=== PATIENT | male | born 1955 | race Caucasian/White ===

== ENCOUNTER → 2020-07-01 18:57 | Outpatient (BNVA) | payer OTHER, SELFPAY | PROVIDERS: Visit Provider Nurse Practitioner | DX: Z20.828 Contact with and (suspected) exposure to other viral communicable diseases (principal) | CPT/HCPCS: 87635 ==

== ENCOUNTER → 2023-01-23 13:12 | Outpatient (BNVA) | payer OTHER, SELFPAY | PROVIDERS: PCP Family Medicine; Visit Provider Family Medicine | DX: M19.90 Unspecified osteoarthritis, unspecified site (principal); E55.9 Vitamin D deficiency, unspecified | CPT/HCPCS: 80053; 82306 ==

== ENCOUNTER → 2024-05-28 14:14 | Outpatient (BNVA) | payer OTHER, SELFPAY | PROVIDERS: PCP Family Medicine; Visit Provider Family Medicine | DX: Z00.00 Encounter for general adult medical examination without abnormal findings (principal); R35.0 Frequency of micturition; N40.0 Benign prostatic hyperplasia without lower urinary tract symptoms | CPT/HCPCS: 80053; 80061 ==

== ENCOUNTER 2024-10-24 21:24 | Emergency (ER) | payer OTHER, SELFPAY ==
[2024-10-24 21:33] VITALS: BP 153/76; PULSE 82; RESP 16; TEMP 36.8; O2SAT 95; BMI 26.9
--- NOTE | 2024-10-24 23:04 | ED_ITS ---
HPI - Recheck/Abnormal Lab/Rx 2 General: Chief Complaint: Recheck/Abnormal Lab/Rx Stated Complaint: high BP head splitting n/v post op yesterday Time Seen by Provider: 10/24/24 23:04 History of Present Illness: Patient is a 69-year-old male seen for headache and sinus pressure 2 days status post ENT procedure where he underwent septoplasty and polypectomy at [facility] with Dr. Walker. Family provides most of the history as he is in moderate distress due to pain. They describe that he has had worsening headache and altered mental status since returning home from surgery. He has not taken any antibiotics. He has vomited several times. He has not had any seizure-like activity. They have not noticed fever. Pain does not seem to responding to oral opioids he was prescribed. Related Data Previous Rx's ?Medication ?Instructions ?Recorded amoxicillin 875 mg-potassium 1 tab PO BID 10 days #20 tabs 06/21/24 clavulanate 125 mg tablet tamsulosin 0.4 mg capsule 0.4 mg PO DAILY urinary symp toms. 08/29/24 #90 caps Allergies Allergy/AdvReac Type Severity Reaction Status Date / Time No Known Allergies Allergy Verified 06/21/24 13:43 PFSH ED 2 PFSH: Medical History Hearing loss Social History Smoking and tobacco/nicotine status: unknown if used tobacco/nicotine Physical Exam 2 Const: COMMON NORMALS: patient oriented x3 and alert OTHER: Moderate distress due to pain. HENMT: OTHER: Bilateral nasal splints in place. No active nasal discharge. No obvious postnasal drip, bleed, or CSF leak noted. Eye: COMMON NORMALS: Equal, round and reactive pupils present, EOMs intact bilaterally and no scleral icterus PUPIL: Yes Equal, round and reactive pupils present Resp: COMMON NORMALS: normal respiratory effort and No retractions Cardio: COMMON NORMALS: regular rate, regular rhythm and No murmurs present (Cardio) RATE: regular rate RHYTHM: regular rhythm GI: COMMON NORMALS: Normal to inspection, nondistended, normoactive bowel sounds present, Soft to palpation and non-tender PALPATION: Yes Soft to palpation Neuro: COMMON NORMALS: patient oriented x3 SENSORIUM/ORIENTATION: Yes alert Skin: COMMON NORMALS: no rashes or lesions noted GENERAL SKIN EXAM: no rashes or lesions noted Course 2 Vital Signs: Vital signs: Vital Signs Temperature 98.2 F 10/24/24 21:33 Pulse Rate 75 10/25/24 03:09 Respiratory Rate 16 10/25/24 00:15 Blood Pressure 140/74 10/25/24 03:09 Pulse Oximetry 91 10/25/24 03:09 Oxygen Delivery Me thod Room Air 10/24/24 23:09 MDM - Recheck/Abnormal Lab/Rx Medical Decision Making In summary, patient is a 69-year-old male seen for headache and altered mental status status post polypectomy and septoplasty. CT brain shows extensive air throughout the intracranial cavity concerning for surgical complication. I contacted ENT on-call at [facility] who spoke with on-call neurosurgery and they jointly agreed that patient would be better served at a larger institution. I spoke with on-call ENT at [facility] in [place] who graciously agrees to consult on the case and recommended hospitalist admission. I spoke with Dr. Tidwell who agrees to admit the patient and accept him in transfer. He was started on vancomycin and cefepime here and the headache is much better with IV morphine. Vital signs are stable with no fever. He will be transported by ground in stable and improved condition. Lab Data 10/24/24 23:40 10/24/24 23:[address] 10/24/24 23:19 IMPRESSION: 1. Diffuse droplets of air throughout the subarachnoid space likely iatrogenic related to recent sinus surgery. 2. No intracranial hemorrhage, focal fluid collection or significant mass effect identified. 3. No discrete bony disruption at the interface of the sinuses with the intracranial fossa appreciated. However, tiny cortical disruption may not be visualized. 4. Moderate acute on chronic pansinusitis with blood in the right maxillary sinus. 5. Post-operative change as described. Laboratory Results WBC 7.24 10^3/uL (3.29-11.43) 10/24/24 23:40 RBC 3.87 10^6/uL (3.85-5.65) 10/24/24 23:40 Hgb 12.60 g/dL (11.27-16.99) 10/24/24 23:40 Hct 37.9 % (37-53) 10/24/24 23:40 MCV 97.9 fl (82-101) 10/24/24 23:40 MCH 32.6 pg (27-33) 10/24/24 23:40 MCHC 33.2 g/dL (30-55) 10/24/24 23:40 RDW 13.1 % (12.1-15.1) 10/24/24 23:40 Plt Count 168 10^3/cmm (157-399) 10/24/24 23:40 MPV 9.4 fL (7.4-10.4) 10/24/24 23:40 Neut % (Auto) 83.5 % 10/24/24 23:40 Lymph % (Auto) 7.0 % 10/24/24 23:40 Gregg % (Auto) 9.1 % 10/24/24 23:40 Eos % (Auto) 0.0 % 10/24/24 23:40 Baso % (Auto) 0.0 % 10/24/24 23:40 Neut # (Auto) 6.04 10^3/uL (1.8-7.7) 10/24/24 23:40 Lymph # (Auto) 0.5 10^3/uL (0.8-4.8) L 10/24/24 23:40 Gregg # (Auto) 0.7 10^3/uL (0.2-0.9) 10/24/24 23:40 Eos # (Auto) 0.0 10^3/uL (0.0-0.8) 10/24/24 23:40 Baso # (Auto) 0.0 10^3/uL (0.0-0.1) 10/24/24 23:40 Nucleated RBC % (auto) 0 % 10/24/24 23: Nucleated RBCs # 0.0 /100WBC 10/24/24 23:40 Sodium 134 mmol/L (136-145) L 10/24/24 23:40 Potassium 3.9 mmol/L (3.5-5.1) 10/24/24 23:40 Chloride 100 mmol/L (98-107) 10/24/24 23:40 Carbon Dioxide 23 mmol/L (22-29) 10/24/24 23:40 Anion Gap 14.9 (5-19) 10/24/24 23:40 BUN 19 mg/dL (8-23) 10/24/24 23:40 Creatinine 0.7 mg/dL (0.7-1.2) 10/24/24 23:40 GFR Calculation 112.5 mL/min (90-130) 10/24/24 23:40 Glucose 128 mg/dL (65-115) H 10/24/24 23:40 Calculated Osmolality 282 mOsm/kg (285-295) L 10/24/24 23:40 Calcium 8.3 mg/dL (8.5-10.5) L 10/24/24 23:40 Total Bilirubin 0.7 mg/dL (0.15-1.2) 10/24/24 23:40 AST 11 U/L (0-40) 10/24/24 23:40 ALT 12 U/L (0-41) 10/24/24 23:40 Alkaline Phosphatase 33 U/L (40-130) L 10/24/24 23:40 Total Protein 6.0 g/dL (6.6-8.7) L 10/24/24 23:40 Albumin 3.9 g/dL (3.5-5.2) 10/24/24 23:40 Globulin 2.1 g/dL (1.3-4.6) 10/24/24 23:40 All radiology interpretation(s) finalized by discharge Discharge Plan Discharge Patient Disposition: Xfer Short-Term Hosp Clinical Impression: Pneumocephalus, Status post nasal septoplasty, Headache Condition: Stable Prescriptions: No Action amoxicillin-pot clavulanate 875-125 mg tablet 1 tab PO BID 10 Days Qty: 20 0RF tamsulosin 0.4 mg capsule 0.4 mg PO DAILY Qty: 90 3RF Discharge Orders: Transfer Out of Facility (Order); Ordered 10/25/24 Ordered By: Leonel Miller Referrals: Carlos Paige DO [Primary Care Provider] - Print Language: Maltese Coding Level of Care Code ED Plating Inspector for Missyg Marcie
[2024-10-24 23:09] VITALS: BP 169/85; PULSE 74; RESP 14; O2SAT 92
--- NOTE | 2024-10-24 23:19 | CTR_ITS ---
PROCEDURE INFORMATION: Exam: CT Head Without Contrast Exam date and time: 10/25/2024 12:19 AM Age: 69 years old Clinical indication: Pain; Headache; Other: Recent sinus surgery yesterday; Additional info: [facility] post sinus surgery TECHNIQUE: Imaging protocol: Computed tomography of the head without contrast. Radiation optimization: All CT scans at this facility use at least one of these dose optimization techniques: automated exposure control; mA and/or kV adjustment per patient size (includes targeted exams where dose is matched to clinical indication); or iterative reconstruction. COMPARISON: No relevant prior studies available. RADIATION DOSE METRICS: Total DLP (mGy-cm): 1224.98 FINDINGS: Brain: There are droplets of air diffusely throughout the subarachnoid space presumably iatrogenic related to recent sinus surgery. However, no intracranial bleed, focal fluid collection, acute infarction or significant mass effect is identified. Cerebral ventricles: No ventriculomegaly. Paranasal sinuses: There is diffuse polypoid mucosal thickening and partial opacification of the sinuses. There are air-fluid levels in the sinuses most notably the right maxillary sinus where there is heterogeneous hyperdensity consistent with blood. There are bilateral medial wall antrectomies. Mastoid air cells: Visualized mastoid air cells are well aerated. Bones: Unremarkable. No acute fracture. Soft tissues: Unremarkable. CT/CT head wo con* [id number] IMPRESSION: 1. Diffuse droplets of air throughout the subarachnoid space likely iatrogenic related to recent sinus surgery. 2. No intracranial hemorrhage, focal fluid collection or significant mass effect identified. 3. No discrete bony disruption at the interface of the sinuses with the intracranial fossa appreciated. However, tiny cortical disruption may not be visualized. 4. Moderate acute on chronic pansinusitis with blood in the right maxillary sinus. 5. Post-operative change as described.
[2024-10-25] VITALS (13 sets, daily range): BP systolic 132–158; BP diastolic 69–102; PULSE 72–86; RESP 16; O2SAT 91–97
[2024-10-25 00:05] LABS: Hematocrit 37.9 % (37-53); Lymphocytes # 0.5 10^3/uL (0.8-4.8); Mean Corpuscular HGB Conc 33.2 g/dL (30-55); Mean Corpuscular Hemoglobin 32.6 pg (27-33); Mean Corpuscular Volume 97.9 fl (82-101); Mean Platelet Volume 9.4 fL (7.4-10.4); Monocytes # 0.7 10^3/uL (0.2-0.9); Monocytes % 9.1 %; Neutrophils # 6.04 10^3/uL (1.8-7.7); Neutrophils % 83.5 %; Nucleated Red Blood Cells % 0 %; Platelet Count 168 10^3/cmm (157-399); Red Blood Count 3.87 10^6/uL (3.85-5.65); Red Cell Distribution Width 13.1 % (12.1-15.1); White Blood Count 7.24 10^3/uL (3.29-11.43)
[2024-10-25] MEDS: morphine 4 mg/mL SDV 1 mL 8 MG IVP (00:15)
[2024-10-25] MEDS: ondansetron 2 mg/ML SDV 2 mL 4 MG IVP (00:15)
[2024-10-25] MEDS: sodium chloride 0.9% 1,000 ML 999 ML IV (00:15)
[2024-10-25 00:17] LABS: Alanine Aminotransferase 12 U/L (0-41); Albumin Level 3.9 g/dL (3.5-5.2); Alkaline Phosphatase 33 U/L (40-130); Anion Gap 14.9 (5-19); Aspartate Amino Transferase 11 U/L (0-40); Blood Urea Nitrogen 19 mg/dL (8-23); Calcium 8.3 mg/dL (8.5-10.5); Carbon Dioxide 23 mmol/L (22-29); Chloride 100 mmol/L (98-107); Creatinine Clr Calc Pharmacy 98.7401; Globulin 2.1 g/dL (1.3-4.6); Glomerular Filtration Rate 112.5 mL/min (90-130); Glucose 128 mg/dL (65-115); Osmolality Calculated 282 mOsm/kg (285-295); Potassium 3.9 mmol/L (3.5-5.1); Sodium 134 mmol/L (136-145); Total Bilirubin 0.7 mg/dL (0.15-1.2)
--- NOTE | 2024-10-25 01:23 | PC.NURSE ---
Assumed care from Amparo DIETZ.
[2024-10-25] MEDS: cefepime 1,000 mg SDV 2000 MG IVP (02:37)
[2024-10-25] MEDS: vancomycin 1,500 MG/300 ML PIGGYBACK 200 MG IV (02:38)
[2024-10-25] MEDS: morphine 4 mg/mL SDV 1 mL IVP ×2 (02:38→06:37)
--- NOTE | 2024-10-25 05:10 | PC.NURSE ---
Report called to Isabel Griffin LPN at [facility]. All questions and concerns were addressed at time of report.
--- NOTE | 2024-10-25 05:20 | PC.NURSE ---
wanted it to be noted in the chart patient's home meds: -Flomax 0.4mg -Amlodipine 5mg -Prednisone 20mg -Azelastine nasal spray -Fluticasone 50mcg -Oxymetazoline
== END 2024-10-25 09:38 | disposition short-term general hospital (02) ==
PROVIDERS: Emergency Provider Student in an Organized Health Care Education/Training Program; PCP Family Medicine
DX: G93.89 Other specified disorders of brain (principal); Z98.890 Other specified postprocedural states; R51.9 Headache, unspecified
CPT/HCPCS: 36415; 70450; 80053; 85025; 96365; 96366; 96375; 96376; 99285; J0692; J2270; J2405; J3370; J7030

== ENCOUNTER 2024-11-07 07:44 | Outpatient (CLI) | payer OTHER, SELFPAY ==
[2024-11-07 09:08] LABS: Basophils % 0.6 %; Eosinophils # 0.1 10^3/uL (0.0-0.8); Eosinophils % 2.4 %; Hematocrit 38.8 % (37-53); Lymphocytes # 1.1 10^3/uL (0.8-4.8); Lymphocytes % 23.1 %; Mean Corpuscular HGB Conc 32.2 g/dL (30-55); Mean Corpuscular Hemoglobin 31.2 pg (27-33); Mean Corpuscular Volume 96.8 fl (82-101); Mean Platelet Volume 9.1 fL (7.4-10.4); Monocytes # 0.4 10^3/uL (0.2-0.9); Monocytes % 7.8 %; Neutrophils # 3.23 10^3/uL (1.8-7.7); Neutrophils % 65.9 %; Nucleated Red Blood Cells % 0 %; Platelet Count 303 10^3/cmm (157-399); Red Blood Count 4.01 10^6/uL (3.85-5.65); Red Cell Distribution Width 12.8 % (12.1-15.1)
[2024-11-07 09:26] LABS: Alanine Aminotransferase 20 U/L (0-41); Albumin Level 3.7 g/dL (3.5-5.2); Alkaline Phosphatase 60 U/L (40-130); Aspartate Amino Transferase 14 U/L (0-40); Blood Urea Nitrogen 14 mg/dL (8-23); Calcium 9.1 mg/dL (8.5-10.5); Carbon Dioxide 23 mmol/L (22-29); Chloride 107 mmol/L (98-107); Globulin 2.7 g/dL (1.3-4.6); Glomerular Filtration Rate 74.5 mL/min (90-130); Glucose 104 mg/dL (65-115); Osmolality Calculated 289 mOsm/kg (285-295); Sodium 139 mmol/L (136-145); Total Bilirubin 0.3 mg/dL (0.15-1.2); Total Protein 6.4 g/dL (6.6-8.7)
[2024-11-07 09:27] LABS: Anion Gap 13.3 (5-19); Potassium 4.3 mmol/L (3.5-5.1)
== END 2024-11-07 07:45 | disposition home or self-care (01) ==
PROVIDERS: PCP Family Medicine
DX: G96.01 Cranial cerebrospinal fluid leak, spontaneous (principal); E87.20 Acidosis, unspecified
CPT/HCPCS: 36415; 80053; 85025

== ENCOUNTER → 2024-11-18 11:45 | Outpatient (BNVA) | payer OTHER, SELFPAY | PROVIDERS: PCP Family Medicine; Visit Provider Family Medicine | DX: E87.20 Acidosis, unspecified (principal) | CPT/HCPCS: 80048 ==

== ENCOUNTER → 2024-12-01 17:34 | Outpatient (BNVA) | payer OTHER, SELFPAY | PROVIDERS: PCP Family Medicine; Visit Provider Emergency Medicine | DX: R39.9 Unspecified symptoms and signs involving the genitourinary system (principal) | CPT/HCPCS: 81000; 87086 ==

== ENCOUNTER → 2025-04-04 09:59 | Outpatient (BNVA) | payer OTHER, MEDICARE, SELFPAY | PROVIDERS: PCP Family Medicine; Visit Provider Family Medicine | DX: Z00.00 Encounter for general adult medical examination without abnormal findings (principal) | CPT/HCPCS: 80053; 80061 ==